=== PATIENT | male | born 1975 | race Caucasian/White ===

== ENCOUNTER 2018-03-07 04:06 | Emergency (ER) | payer SELFPAY ==
[2018-03-07 04:15] VITALS: BP 186/104
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
== END 2018-03-07 05:10 | disposition home or self-care (01) ==
LOC: ER 04:06
DX: S99.922A Unspecified injury of left foot, initial encounter (principal); M79.672 Pain in left foot; M79.89 Other specified soft tissue disorders; V03.10XA Pedestrian on foot injured in collision with car, pick-up truck or van in traffic accident, initial encounter; I10 Essential (primary) hypertension
CPT/HCPCS: 99283